=== PATIENT | male | born 2000 | race Caucasian/White ===

== ENCOUNTER 2021-03-30 19:43 | Emergency (ER) | payer OTHER, SELFPAY ==
--- NOTE | 2021-03-30 19:53 | ED.URI ---
HPI - URI/Sore Throat General Chief Complaint: Upper Respiratory Infection Stated Complaint: Sore Throat,Headache,Chills Source: patient and RN notes reviewed Mode of arrival: ambulatory Limitations: no limitations History of Present Illness HPI Narrative: Chito is a 21-year-old male patient who ambulated into the [facility] today accompanied by his mother. Patient states he said a sore throat since March 28. Patient states she is used Tylenol for relief. Patient also complains of chills and a fever.. Patient states he has a history of getting strep throat frequently. Patient is vaccinated for Covid. Patient has no other symptoms MD elicited complaint: sore throat Related Data Allergies Allergy/AdvReac Type Severity Reaction Status Date / Time No Known Allergies Allergy Verified 03/30/21 19:44 Review of Systems Review of Systems: CONSTITUTIONAL: Denies body aches, fever,+ chills, or sweats. EYES: Denies visual changes, redness, or discharge. ENT: Denies rhinorrhea, congestion, + sore throat, denies otalgia. CARDIOVASCULAR: Denies chest pain, palpitations, or edema. RESPIRATORY: Denies cough or dyspnea. GASTROINTESTINAL: Denies abdominal pain, nausea, vomiting, or diarrhea. GENITOURINARY: Denies dysuria or hematuria. SKIN: Denies rash, itching, or wounds. MUSCULOSKELETAL: Denies back pain, joint pain, or myalgia. NEUROLOGIC: + headache, denies numbness, tingling, or weakness. PSYCH: Denies depression or anxiety. All systems reviewed & are unremarkable except as noted in HPI and below PMFSH Comments At time of signature, I have reviewed and agree with nursing past medical, surgical, social and family history unless otherwise noted. Please see nursing chart for further information. There is no relevant family history pertinent to the presenting complaint Exam Narrative: GENERAL: Well-appearing, well-nourished, and in no acute distress. HEAD: Normocephalic, atraumatic. EYES: EOMI. No redness or drainage. Conjunctivae normal. ENT: Mucous membranes pink and moist. Nares clear. No rhinorrhea. TMs normal bilaterally. Throat erythemic, 3+ tonsils with moderate amount exudate on right, normal. . NECK: Normal AROM. Supple. Anterior cervical lymphadenopathy bilaterally. CHEST: No respiratory distress. Clear to auscultation. MUSCULOSKELETAL: No bony tenderness. EXTREMITIES: Normal range of motion. No edema. SKIN: Warm, dry, no rash. Capillary refill normal. Normal skin turgor. NEURO: No focal deficits. Alert and oriented x3. Gait steady. PSYCH: Normal affect. No signs of depression or anxiety. Course Vital Signs Vital signs: Reviewed MDM - URI/Sore Throat MDM Narrative Medical decision making narrative: Patient has 3+ tonsils with moderate amount of exudate on the right. Patient has fever, chills no other symptoms. Rapid strep is negative strep culture will be sent out. Patient has anterior lymph node swelling as well patient has a history of multiple strep infections in the past. Differential Diagnosis Differential diagnosis: Likely upper respiratory infection, otitis media, sinusitis and pharyngitis Medical Records Attestation: I reviewed the patient's medical records. Lab Data Attestation: I reviewed the patient's lab results. Critical Care Time Critical Care Time Critical Care Time: No Discharge Plan Discharge Clinical Impression: Pharyngitis Qualifiers: Pharyngitis/tonsillitis etiology: unspecified etiology Qualified Code(s): J02.9 - Acute pharyngitis, unspecified Patient Disposition: Home, Self-Care Condition: Stable Instructions: Antibiotic Form, Pharyngitis (ED) Additional Instructions: Your rapid strep swab was negative today at [facility]. You will be notified in a few days if the culture comes back positive for strep. Take motrin or tylenol for fever or pain. Rest and stay hydrated. Follow up with your PCP in 3-5 days if symptoms are not improving, or sooner if symp
[2021-03-30 19:58] VITALS: BP 115/68; PULSE 106; RESP 18; TEMP 37.7; O2SAT 97
== END 2021-03-30 20:16 | disposition home or self-care (01) ==
PROVIDERS: Emergency Provider Nurse Practitioner Family
DX: J02.9 Acute pharyngitis, unspecified (principal)
CPT/HCPCS: 87081; 87880; 99213; G0463

== ENCOUNTER 2021-04-08 21:10 | Emergency (ER) | payer OTHER, SELFPAY ==
[2021-04-08 21:13] VITALS: BP 107/49; PULSE 124; RESP 17; TEMP 36.9; O2SAT 99
--- NOTE | 2021-04-08 21:56 | PC.NURSE ---
Pt c/o headache,bodyaches, fevers, and diarrhea starting . Pt has been taking otc meds that have helped with fever. Pt was at urgent care 03/30 for c/o sore throat and fevers was given abx for strep that he is still taking. Pt strep test was negative. Pt no longer has sore throat at this time.
[2021-04-08] MEDS: SODIUM CHLORIDE 0.9% IV 1,000 ML 999 ML IV CONT (22:29)
[2021-04-08 22:31] VITALS: BP 97/56; PULSE 81; RESP 18; O2SAT 97
[2021-04-08 23:44] LABS: Monoscreen Negative (Negative); Negative Monotest Control Negative (Negative); Positive Monotest Control Positive (Positive)
[2021-04-08 23:56] VITALS: BP 103/64; PULSE 88; RESP 16; TEMP 36.3; O2SAT 100
--- NOTE | 2021-04-09 00:23 | ED.FEVER ---
HPI - Fever General Chief Complaint: Fever Stated Complaint: fever Time Seen by Provider: 04/08/21 21:41 History of Present Illness HPI Narrative: Patient is a 21-year-old male who presents ER with fever. Reports was over 103.0 ?F. Associate with sore throat. Ongoing over the last week. Had recently been swabbed for strep and given amoxicillin. No known sick contacts. No loss of taste or smell. Vaccine against Covid. Denies cough or difficulty breathing. Has taken Tylenol and ibuprofen just prior to arrival. Related Data Allergies Allergy/AdvReac Type Severity Reaction Status Date / Time No Known Allergies Allergy Verified 04/08/21 21:17 Review of Systems Review of Systems: All systems reviewed & are unremarkable except as noted in HPI and below Constitutional: Constitutional: Reports chills, Reports fatigue and Reports fever(s) ENT: Denies nasal congestion and Reports sore throat Cardiovascular: Cardiovascular: Denies chest pain and Denies radiating jaw, neck or arm pain Respiratory: Respiratory: Denies cough, Denies dyspnea and Denies wheezing Gastrointestinal: Gastrointestinal: Reports diarrhea, Denies nausea and Denies vomiting PMFSH Past Medical History Medical History (Updated 04/09/21 @ 00:27 by Emmett Huitron MD) Healthy adult male Surgical History Surgical History (Updated 04/09/21 @ 00:27 by Emmett Huitron MD) No history of previous surgery Social History Social History (Updated 04/09/21 @ 00:27 by Emmett Huitron MD) Smoking status: Never smoker Exam Narrative: GENERAL: Well-appearing, well-nourished, and in no acute distress. HEAD: Normocephalic, atraumatic. EYES: PERRL and EOMI. ENT: Mucous membranes moist. Tonsillar hypertrophy with exudate noted. Uvula midline and nonedematous. NECK: Supple. CHEST: Clear to auscultation. No respiratory distress. HEART: Tachycardic and regular. Normal peripheral pulses. ABDOMEN: Soft, nontender, nondistended. EXTREMITIES: Normal range of motion. No edema. SKIN: Warm, dry, no rash. 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 D/c home. Vital Signs Vital signs: Vital Signs Temperature 98.4 F 04/08/21 21:13 Pulse Rate 124 H 04/08/21 21:13 Respiratory Rate 17 04/08/21 21:13 Blood Pressure 107/49 L 04/08/21 21:13 Pulse Oximetry 99 04/08/21 21:13 Temperature 97.4 F L 04/08/21 23:56 Pulse Rate 88 04/08/21 23:56 Respiratory Rate 16 04/08/21 23:56 Blood Pressure 103/64 04/08/21 23:56 Pulse Oximetry 100 04/08/21 23:56 MDM - Fever Lab Data Labs: Lab Results 04/08/21 Range/Units 22:28 Monoscreen Negative (Negative) Influenza A Screen Negative Reference Range: Negative Influenza B Screen Negative Reference Range: Negative Discharge Plan Discharge Clinical Impression: Acute viral syndrome Patient Disposition: Home, Self-Care Condition: Stable Instructions: Viral Syndrome (ED) Additional Instructions: Return the ER if cannot breathe, you cannot swallow, you have chest pain or shortness of breath, you lose consciousness, you have additional concerns. Take Tylenol and ibuprofen as needed for body aches and fever. Do not return to work until free of fever for 24 hours. Prescriptions: No Action amoxicillin 500 mg capsule 500 mg PO Q12H Qty: 20 RF: 0 Follow-up/Referrals: PHYSICIAN,CARDIAC MONITOR [Primary Care Provider] - Vic Rai MD [Physician] - 1 Week Stand Alone Forms: Work/School Release IP
[2021-04-09 00:34] VITALS: BP 101/62; PULSE 73; RESP 16; O2SAT 96
== END 2021-04-09 00:36 | disposition home or self-care (01) ==
PROVIDERS: Emergency Provider Emergency Medicine
DX: B34.9 Viral infection, unspecified (principal)
CPT/HCPCS: 36415; 86308; 87804; 96360; 99283; J7030

== ENCOUNTER 2022-10-10 17:34 | Emergency (ER) | payer OTHER, SELFPAY ==
--- NOTE | 2022-10-10 17:37 | ED.URI ---
HPI - URI/Sore Throat General Chief Complaint: Upper Respiratory Infection Stated Complaint: sorethroat Time Seen by Provider: 10/10/22 17:36 Source: patient Mode of arrival: ambulatory Limitations: no limitations History of Present Illness HPI Narrative: Patient is a 22-year-old male who presents with cough for 3 days followed by sore throat and fever that started 2 days ago. Patient reports high his fever was 101. Has only taken Tylenol for symptoms. Denies seasonal allergies. Reports coworkers have been sick, unsure of what illness. Denies any headache, congestion, ear pain, nausea, vomiting, diarrhea. Still able to eat and drink normally Related Data Allergies Allergy/AdvReac Type Severity Reaction Status Date / Time No Known Allergies Allergy Verified 10/10/22 17:47 Review of Systems Review of Systems: All systems reviewed & are unremarkable except as noted in HPI and below Constitutional: Constitutional: Denies body ache(s), Reports fever(s), Denies headache(s), Denies malaise and Denies weakness Eyes: Eyes: Denies loss of vision ENT: Denies otalgia, Denies headache(s), Denies nasal congestion, Denies sinus pain and Reports sore throat Cardiovascular: Cardiovascular: Denies chest pain, Denies irregular heart rhythm and Denies dyspnea Respiratory: Respiratory: Reports cough and Denies dyspnea Gastrointestinal: Gastrointestinal: Denies abdominal pain, Denies melena, Denies hematochezia, Denies diarrhea, Denies nausea and Denies vomiting Musculoskeletal: Musculoskeletal: Denies back pain, Denies myalgias and Denies arthralgias Integumentary/Breasts: Skin/Breast: Denies pruritus and Denies rash Neurologic: Denies headache(s), Denies loss of vision and Denies weakness Psychiatric: Psychiatric: Reports no additional psychiatric complaints PMF Past Medical History Medical History (Updated 10/10/22 @ 18:06 by Dinora Rowell APRN) Healthy adult male Surgical History Surgical History (Updated 04/09/21 @ 00:27 by Emmett Huitron MD) No history of previous surgery Social History Social History (Updated 04/09/21 @ 00:27 by Emmett Huitron MD) Smoking status: Never smoker Comments At time of signature, agree with nursing past medical, surgical, social and family history. There is no relevant family history pertinent to the presenting complaint. Exam Const: General: cooperative, healthy appearing, comfortable, no acute distress and well nourished Nutritional Appearance: well nourished Orientation/consciousness: patient oriented x3 Limitations: no limitations HENMT: Head: normal to inspection, normocephalic and atraumatic Ears: hearing grossly normal bilaterally, external ears normal, TM's normal bilaterally and EAC's normal Face/Nose/Sinus: Normal external nose present, Normal nares present, Normal nasal mucous membranes and turbinates present, Normal septum present, normal facial exam, sinuses nontender and face symmetric Face and sinus: normal facial exam, sinuses nontender and face symmetric Mouth: Yes Normal oral and palatal mucosa present, Yes lip normal and Yes moist mucous membranes Teeth and gingiva: dentition normal Throat: uvula midline, abnormal tonsil bilateral erythema, exudates, hypertrophy 3+ and pitting, posterior oropharynx abnormal edema, erythema and exudates and postnasal drainage Eyes: General: appearance normal, both eyes and all related structures Alignment and Position: alignment normal and position normal Periorbital: periorbital findings normal Eyelids: eyelids normal Pupils: Equal, round and reactive pupils present Neck: Neck: normal visual inspection, full ROM, no lymphadenopathy and supple Chest: Chest palpation & inspection: normal inspection of the chest and normal palpation of entire chest wall Resp: Effort & Inspection: normal respiratory effort and able to speak in complete sentences Auscultation: clear to auscultation bilaterally, no crackles, no ra
[2022-10-10 17:46] VITALS: BP 121/73; PULSE 98; RESP 18; TEMP 36.6; O2SAT 100
== END 2022-10-10 18:08 | disposition home or self-care (01) ==
PROVIDERS: Emergency Provider Nurse Practitioner Family
DX: J03.90 Acute tonsillitis, unspecified (principal)
CPT/HCPCS: 87081; 87880; 99213; G0463

== ENCOUNTER 2023-08-23 19:39 | Emergency (ER) | payer OTHER, SELFPAY ==
[2023-08-23 19:51] VITALS: BP 125/79; PULSE 119; RESP 20; TEMP 37.1; O2SAT 99
[2023-08-23 19:53] VITALS: BP 125/79; PULSE 119; RESP 20; TEMP 37.1; O2SAT 99
--- NOTE | 2023-08-23 19:59 | ED.URI ---
HPI - URI/Sore Throat General Chief Complaint: Upper Respiratory Infection Stated Complaint: Sorethroat,SANCHEZ,Fever Time Seen by Provider: 08/23/23 20:04 Source: patient and RN notes reviewed Mode of arrival: ambulatory Limitations: no limitations History of Present Illness HPI Narrative: 23-year-old male presents with concern for sore throat, fever, body aches. Reports symptoms started on Saturday. Denies MD elicited complaint: fever and sore throat Related Data Home Medications Medication Instructions Recorded Confirmed doxycycline hyclate 50 mg capsule mg 08/23/23 Allergies Allergy/AdvReac Type Severity Reaction Status Date / Time No Known Allergies Allergy Verified 08/23/23 19:52 Review of Systems Review of Systems: CONSTITUTIONAL: Reports malaise, chills, sweats, fever. EYES: Denies visual changes, redness, or discharge. ENT: Denies rhinorrhea, congestion, sinus pain, otalgia. Reports sore throat. CARDIOVASCULAR: Denies chest pain, palpitations, or edema. RESPIRATORY: Denies cough. Denies dyspnea. GASTROINTESTINAL: Denies abdominal pain, nausea, vomiting, diarrhea SKIN: Denies rash or itching. MUSCULOSKELETAL: Reports myalgia. NEUROLOGIC: Reports headache. All systems reviewed & are unremarkable except as noted in HPI and below PMFSH Past Medical History Medical History (Updated 08/23/23 @ 20:14 by Erlinda Fregoso NP) Healthy adult male Surgical History Surgical History (Updated 04/09/21 @ 00:27 by Emmett Huitron MD) No history of previous surgery Social History Social History (Updated 04/09/21 @ 00:27 by Emmett Huitron MD) Smoking status: Never smoker Comments At time of signature, agree with nursing past medical, surgical, social and family history. There is no relevant family history pertinent to the presenting complaint Exam Narrative: GENERAL: Well-appearing, well-nourished, and in no acute distress. HEAD: Normocephalic EYES: PERRLA, conjunctivae clear ENT: Nares clear, turbinates edematous and erythematous, clear discharge. Mucous membranes moist. TM pearly [place] with dull light reflex bilaterally; no tragal tenderness. Oropharynx erythematous without lesions. Tonsils enlarged and with exudate, no drooling, no hoarseness, no trismus, uvula midline. NECK: Supple. No lymphadenopathy CHEST: Clear to auscultation, breath sounds equal. No wheezing, rhonchi, rales, or stridor. No respiratory distress, speaks in full sentences. HEART: Regular rate and rhythm. No murmur heard. SKIN: Warm, dry, no rash. NEURO: Alert and oriented x3. PSYCH: Normal mood and affect Course Course Emergency Course: Patient is aware of diagnosis, understands and agrees to treatment plan. Anticipatory guidance given. Patient agrees to follow-up as directed and is aware of reasons to seek care at the emergency department. Portions of this record may have been created with voice recognition software Level of Care: [facility] Vital Signs Vital signs: Vital Signs Temperature 98.7 F 08/23/23 19:51 Pulse Rate 119 H 08/23/23 19:51 Respiratory Rate 20 08/23/23 19:51 Blood Pressure 125/79 08/23/23 19:51 Pulse Oximetry 99 08/23/23 19:51 Oxygen Delivery Room Air 08/23/23 19:51 Temperature 98.7 F 08/23/23 19:53 Pulse Rate 119 H 08/23/23 19:53 Respiratory Rate 20 08/23/23 19:53 Blood Pressure 125/79 08/23/23 19:53 Pulse Oximetry 99 08/23/23 19:53 Oxygen Delivery Room Air 08/23/23 19:53 Reviewed. MDM - URI/Sore Throat MDM Narrative Medical decision making narrative: Differential diagnosis considered: Flores virus, strep pharyngitis, allergic rhinitis, upper respiratory tract infection, sinusitis, rhinosinusitis, nasopharyngitis. viral pharyngitis, otitis media, otitis externa, pneumonia, bronchitis, viral cough syndrome, viral syndrome, and influenza. Exam findings show no acute concerns or changes; patient is non-toxic appearing and is i
== END 2023-08-23 20:16 | disposition home or self-care (01) ==
PROVIDERS: Emergency Provider Nurse Practitioner
DX: J03.90 Acute tonsillitis, unspecified (principal)
CPT/HCPCS: 87081; 87880; 99213; G0463